=== PATIENT | female | born 1990 | race Caucasian/White ===

== ENCOUNTER 2017-01-20 22:20 | Emergency (ER) ==
[2017-01-20 22:28] VITALS: BP 137/91; TEMP 98.5; BMI 37.8
[2017-01-20 22:59] LABS: BILIRUBIN,URINE Negative (NEGATIVE); KETONES,URINE Negative (NEGATIVE); LEUKOCYTE ESTERASE ,URINE Negative (NEGATIVE); NITRITE,URINE Negative (NEGATIVE); PH,URINE 5.5 (5-9); PROTEIN,URINE Negative (NEGATIVE); URINE, BLOOD 3+ (NEGATIVE)
[2017-01-20] MEDS ORDERED: TORADOL IVP STA (23:00)
[2017-01-20 23:01] LABS: URINE PREGNANCY INTERNAL QC INTERNAL QC VALID
[2017-01-20 23:04] LABS: ADD URINE MICROSCOPIC YES; BACTERIA,URINE TRACE (NOT PRESENT)
--- NOTE | 2017-01-20 23:06 | ED.PDOC ---
General ED Provider: Dr. KACY ORDAZ Chief Complaint: Urinary Problem Stated Complaint: pateint reports one week history of right abdominal pain radiating to the back that got worse yesterday.Was seen in the clinic had a UA that showed blood and bacteria but was on he period. PCP could not decide if she had a stone. Gave her macribid and told her to come to ER if worse. Time Seen by Physician: 23:02 Mode of Arrival: Walk-In Information Source: Patient Exam Limitations: No limitations Primary Care Provider: MANE MENDENHALL Nursing and Triage Documentation Reviewed and Agree: Yes GI Complaint Exam - Abdominal Pain Complaint/Exam Onset: Sudden Duration: constant Symptoms Are: Still present Timing: Constant Initial Severity: Moderate Current Severity: Severe Location of Pain: RUQ, RLQ Radiates To: Reports: Back, Flank Character: Reports: Sharp, Aching Aggravating: Reports: None Alleviating: Reports: None Associated Signs and Symptoms: Reports: Decreased appetite, Vaginal bleeding. Denies: Diaphoresis, Fever, Cough, Chest pain, Dizziness, Back pain, Constipation, Blood in stool, Dysuria, Urinary frequency, Decreased urine output , Vaginal discharge, Nausea, Vomiting, Diarrhea, Sore throat, Decreased activity AAA Risk Factors: Reports: None Cardiac Risk Factors: Reports: None Ectopic Risk Factors: Reports: None Ovarian Torsion Risk Factors: Reports: None Surgical Obstruction Risk Factors: Reports: None Related Surgical History: Reports: None Patient Rh Status: Unknown Abdominal Findings: Present: CVA Tenderness Vulva Exam: Present: Normal Findings Vaginal Exam: Present: Normal Findings Cervical Exam: Present: Normal findings Differential Diagnoses: Appendicitis, Constipation, Diverticulitis, Gastroenteritis, Ureteral Stone, GB Review of Systems - Review Of Systems Constitutional: Reports: No symptoms Eyes: Reports: No symptoms Ears, Nose, Mouth, Throat: Reports: No symptoms Respiratory: Reports: No symptoms Cardiac: Reports: No symptoms GI: Reports: Abdominal pain (right lower quadrant) : Reports: Hematuria Musculoskeletal: Reports: Back pain Skin: Reports: No symptoms Neurological: Reports: Anxiety Endocrine: Reports: No symptoms Hematologic/Lymphatic: Reports: No symptoms All Other Systems: Reviewed and Negative Past Medical History - Past Medical History Previously Healthy: Yes Endocrine: Reports: None Cardiovascular: Reports: None Respiratory: Reports: None Hematological: Reports: None Gastrointestinal: Reports: None Genitourinary: Reports: None Neuro/Psych: Reports: None Musculoskeletal: Reports: None Cancer: Reports: None Last Menstrual Period: stopped sunday - Surgical History General Surgical History: Reports: (x 3 ) - Family History Family History: Reports: Other (Kidney stones ) - Social History Smoking Status: Never smoker Hx Substance Use: No Alcohol Screening: None - Immunizations Tetanus Shot up to Date: Yes Physical Exam - Physical Exam Appearance: Ill-appearing, Obese Ill-appearing: Moderate Pain Distress: Severe Eyes: MIGUEL, EOMI, Conjunctiva clear ENT: Ears normal, Nose normal, Oropharynx normal Neck: Supple Respiratory: Airway patent, Breath sounds clear, Breath sounds equal, Respirations nonlabored Cardiovascular: RRR, Pulses normal, No rub, No murmur GI/: Soft, No masses, Bowel sounds normal, No Organomegaly, Tender Musculoskeletal: Normal strength Skin: Warm, Dry, Normal color Neurological: Sensation intact, Motor intact, Reflexes intact, Cranial nerves intact, Alert, Oriented Psychiatric: Anxious Interpretation - Radiology Interpretation Radiology Interpretation By: Radiologist Radiology Results: Positive (3 mm stone on the right) Exam Interpreted: CT Scan Critical Care Note - Critical Care Note Total Time (mins): 30 Course - Course Hematology/Chemistry: 01/20/17 23:12 01/20/17 23:12 Orders, Labs, Meds: Lab Review 01/20/17 01/20/17 22:40 23:12 WBC 10.01 RBC 5.10 Hgb 13.0 Hct 39.9 MCV 78.2 L MCH 25.5 L MCHC 32.6 RDW Coeff of [place] 13.4 Plt Count 416 Immature Gran % (Auto) 0.2 Neut % (Auto) 57.2 Lymph % (Auto) 34.3 [place] % (Auto) 5.6 Eos % (Auto) 2.5 Baso % (Auto) 0.2 Immature Gran # (Auto) 0.0 Neut # 5.7 Lymph # 3.4 [place] # 0.6 Eos # 0.3 Baso # 0.0 Sodium 143 Potassium 3.9 Chloride 103 Carbon Dioxide 28 Anion Gap 15.9 BUN 13 Creatinine 0.88 Estimated GFR (MDRD) 78.00 BUN/Creatinine Ratio 14.77 Glucose 95 Calcium 11.1 H Total Bilirubin 0.44 AST 13 L ALT 14 Alkaline Phosphatase 83 Total Protein 7.4 Albumin 3.6 Globulin 3.8 Albumin/Globulin Ratio 0.95 Amylase 61 Lipase 19 Urine Color Yellow Urine Clarity Slightly Urine pH 5.5 Ur Specific [place] >=1.030 Urine Protein Negative Urine Glucose (UA) Negative Urine Ketones Negative Urine Blood 3+ Urine Nitrite Negative Urine Bilirubin Negative Urine Urobilinogen 0.2 Ur Leukocyte Esterase Negative Urine Microscopic RBC 5-10 Ur Squamous Epith Cells 2-5 Calcium Oxalate Crystal Trace Urine Bacteria Trace Urine Test Negative Orders Category Date Time Status ED IV/MEDIPORT/POWERPORT .ONCE EMERGENCY 01/20/17 23:00 Active AMYLASE Stat LAB 01/20/17 23:12 Completed CBC W/ AUTO DIFF Stat LAB 01/20/17 23:12 Completed COMPREHENSIVE METABOLIC PANEL Stat LAB 01/20/17 23:12 Completed LIPASE Stat LAB 01/20/17 23:12 Completed UA [URINALYSIS C & S IF INDICATED] Stat LAB 01/20/17 22:40 Completed URINE Stat LAB 01/20/17 22:40 Completed 0.9 % Sodium Chloride [Saline Flush] MEDS 01/20/17 23:00 Discontinued 1 syr IVF PRN PRN Ketorolac Tromethamine [Toradol] MEDS 01/20/17 23:00 Discontinued 30 mg IVP ONCE STA Sodium Chloride 0.9% [Sodium Chloride] 1,000 ml MEDS 01/20/17 23:22 Discontinued IV 250 mls/hr Tamsulosin HCl [Flomax] MEDS 01/21/17 00:51 Discontinued 0.4 mg PO ONCE STA CT ABD/PEL WO RENAL STONE PROT Stat RADS 01/20/17 23:42 Completed Medications Discontinued Medications Generic Name Dose Route Start Last Admin Trade Name Freq PRN Reason Stop Dose Admin Sodium Chloride 1,000 mls @ 250 mls/hr 01/20/17 23:22 01/20/17 23:18 Sodium Chloride IV 01/21/17 03:21 250 mls/hr .Q4H STA Administration Ketorolac Tromethamine 30 mg 01/20/17 23:00 01/20/17 23:19 Toradol IVP 01/20/17 23:01 30 mg ONCE STA Administration Sodium Chloride 1 syr 01/20/17 23:00 01/20/17 23:22 Saline Flush IVF 1 syr PRN PRN Administration To flush IV Tamsulosin HCl 0.4 mg 01/21/17 00:51 01/21/17 00:57 Flomax PO 01/21/17 00:52 0.4 mg ONCE STA Administration Vital Signs: Temp Pulse Resp BP Pulse Ox 01/20/17 22:21 98.5 F 90 16 137/91 H 98 Departure - Departure Time of Disposition: 00:53 Disposition: HOME SELF-CARE Discharge Problem: Renal and ureteric calculus Instructions: Kidney Stones (ED) Condition: Fair Pt referred to PMD for follow-up: Yes Additional Instructions: Push fluids Follow up with PCP in 3 days Take medications as prescribed. Continue antibiotics until gone. Prescriptions: Hydrocodone/Acetaminophen [[place] 5-325 Tablet] 1 tab PO Q6HR PRN #20 tablet PRN Reason: PAIN Tamsulosin HCl [Flomax] 0.4 mg PO DAILY #7 cap.er.24h Allergies/Adverse Reactions: Allergies latex Adverse Reaction (Verified 01/20/17 22:33) Rash Home Medications: Ambulatory Orders Hydrocodone/Acetaminophen [[place] 5-325 Tablet] 1 tab PO Q6HR PRN #20 tablet 07/07 Ibuprofen 800 mg PO DIRECTED PRN 01/20/17 Nitrofurantoin Monohyd/M-Cryst [Macrobid] 100 mg PO BID 01/20/17 Tamsulosin HCl [Flomax] 0.4 mg PO DAILY #7 cap.er.24h 01/21/17 Disposition Discussed With: Patient, Family
[2017-01-20 23:14] LABS: BASOPHILS % (AUTO) 0.2 % (0.0-3.0); EOSINOPHILS # (AUTO) 0.3 K/ul (0.0-0.7); EOSINOPHILS % (AUTO) 2.5 % (0.0-7.0); HEMATOCRIT 39.9 % (37.0-47.0); IMMATURE GRANULOCYTE % (AUTO) 0.2 % (0.0-5.0); LYMPHOCYTES # (AUTO) 3.4 K/uL (0.60-3.4); LYMPHOCYTES % (AUTO) 34.3 (10.0-50.0); MEAN CORPUSCULAR HEMOGLOBIN 25.5 pg (27.0-31.0); MEAN CORPUSCULAR HGB CONC 32.6 (31.8-35.4); MEAN CORPUSCULAR VOLUME 78.2 fl (81.0-99.0); MONOCYTES # (AUTO) 0.6 K/uL (0.4-2.0); MONOCYTES % (AUTO) 5.6 (0-10); NEUTROPHILS # (AUTO) 5.7 K/ul (2.0-6.9); NEUTROPHILS % (AUTO) 57.2; PLATELET COUNT 416 10^3/uL (140-440); WHITE BLOOD COUNT 10.01 K/ul (4.6-10.2)
[2017-01-20] MEDS ORDERED: SODIUM CHLORIDE 1,000 ML IV STA (23:22)
[2017-01-20 23:34] LABS: ALBUMIN 3.6 g/dL (3.4-5.0); ALBUMIN/GLOBULIN RATIO 0.95; ANION GAP 15.9; BILIRUBIN,TOTAL 0.44 mg/dL (0.00-1.20); BUN/CREATININE RATIO 14.77; CALCIUM 11.1 mg/dL (8.2-10.2); CREATININE 0.88 mg/dL (0.60-1.30); POTASSIUM 3.9 mmol/L (3.5-5.10); TOTAL PROTEIN 7.4 g/dL (6.4-8.2)
--- NOTE | 2017-01-21 00:46 | CT ---
Exam: CT of the abdomen and pelvis without contrast History: Right flank pain and hematuria Technique: [address] of the abdomen and pelvis without intravascular contrast FINDINGS: The lung bases are clear. No significant liver abnormality. The adrenals, pancreas and sp emil are unremarkable. The stomach and hiatus are unremarkable.The gallbladder appears normal. Mild right hydronephrosis and hydroureter. There is a 3 mm calculus in the distal ureter just prior to the ureterovesicular junction. There is a 5 mm nonobstructing calculus in the right kidney. Punctate nonobstructing calculus of the left kidney. The appendix is normal. Normal caliber bowel loops. Vascular structures appear normal by noncontrast CT. Right distal ureteral calculus. Pelvic genitourinary structures appear normal otherwise. Normal pe lvic bowel loops. No acute findings of the skeleton. Ankylosis of T11-T12 incidentally noted. Impression: 1. Mild right hydronephrosis and hydroureter secondary to a 3 mm distal ureteral calculus. 2. Bilateral nonobstructing nephrolithiasis also seen.
[2017-01-21] MEDS ORDERED: FLOMAX PO STA (00:51)
== END 2017-01-21 01:09 | disposition home or self-care (01) ==
LOC: ED 22:20
DX: N20.2 Calculus of kidney with calculus of ureter (principal)
CPT/HCPCS: 36415; 74176; 80053; 81001; 81025; 82150; 83690; 85025; 96361; 96374; 99283